=== PATIENT | male | born 1975 | race Hispanic/Latino ===

== ENCOUNTER 2017-06-26 03:49 | Emergency (ER) | payer OTHER ==
[2017-06-26 04:04] VITALS: BP 143/81; PULSE 92; RESP 16; TEMP 98.2; O2SAT 98
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
--- NOTE | 2017-06-26 08:45 | RAD ---
HISTORY: pain COMPARISON: No prior FINDINGS: BONES: Normal. No fracture. JOINTS: Normal. No osteoarthritis. SOFT TISSUE: Normal. OTHER FINDINGS: None . IMPRESSION: Normal Bone Xray.
--- NOTE | 2017-06-26 08:57 | RAD ---
PROCEDURE: Radiographs of the Lumbar Spine. HISTORY: pain COMPARISON: No prior. FINDINGS: BONES: Normal alignment. No listhesis. No fracture. DISC SPACES: Multilevel disc space narrowing and anterior spondylosis. OTHER FINDINGS: None. IMPRESSION: Multilevel disc space narrowing and anterior spondylosis.
== END 2017-06-26 06:32 | disposition home or self-care (01) ==
LOC: H.ER 03:49
DX: S39.012A Strain of muscle, fascia and tendon of lower back, initial encounter (principal); X50.9XXA Other and unspecified overexertion or strenuous movements or postures, initial encounter; Y99.0 Civilian activity done for income or pay; G89.29 Other chronic pain; Z88.0 Allergy status to penicillin